=== PATIENT | male | born 1980 | race Caucasian/White ===

== ENCOUNTER 2019-12-01 14:04 | Outpatient (CLI) | payer BC, SELFPAY ==
--- NOTE | ~2019-12-01 | US_ITS ---
EXAMINATION: US arterial duplex LE DATE: 12/01/2019 15:21 [facility] INDICATION: Peripheral arterial disease TECHNIQUE: Segmental pressures and plethysmographic and Doppler waveforms of the brachial and lower e xtremity arteries were obtained. COMPARISON: None. FINDINGS: Right and left brachial artery pressures of 134 mm Hg and 150 mm Hg, respectively, are concordant (no rmal difference <= 30 mmHg). The right high-thigh pressure index is 0.97 (normal > 1.2). The right ankle-brachial index (DORIS) is 0 .89 (normal >= 0.9-1.0). The right great toe-brachial index (TBI) is 0.91 (normal >= 0.60). The right lower extremity segmental pressure gradients are unremarkable (normal gradients <= 20-30 mmHg betwee n adjacent levels on the same leg or the same levels on the two legs). Arterial Doppler waveforms are biphasic and monophasic. The left high-thigh pressure index is 1.03. The left DORIS is 0.96. The left TBI is 0.39. The left lowe r extremity segmental pressure gradients are increased below the left ankle. Arterial Doppler wavefor ms mixed biphasic and monophasic. IMPRESSION: 1. Diminished right ankle-brachial index, consistent with mild peripheral arterial disease. 2: Diminished left toe brachial index, consistent with mild-moderate peripheral arterial disease. 3: Diminished high thigh pressure index bilaterally, consistent with inflow arterial disease. Reviewed, dictated and finalized at location A. [facility] IMPRESSION: 1. Diminished right ankle-brachial index, consistent with mild peripheral arter ial disease. 2: Diminished left toe brachial index, consistent with mild-moderate peripheral arterial disease. 3: Diminished high thigh pressure index bilaterally, consistent with inflow ar terial disease.
== END 2019-12-01 14:05 | disposition home or self-care (01) ==
PROVIDERS: Visit Provider Podiatrist Foot & Ankle Surgery
DX: I73.9 Peripheral vascular disease, unspecified (principal)
CPT/HCPCS: 93925